=== PATIENT | male | born 1940 | race Caucasian/White ===

== ENCOUNTER 2022-04-01 16:50 | Observation (INO) | payer OTHER, MEDICARE ==
[2022-04-01] MEDS ORDERED: ONDANSETRON 4 MG/2 ML VIAL IVPB ONE ×2 (16:56→17:20)
[2022-04-01] MEDS ORDERED: ONDANSETRON 4 MG/2 ML VIAL ONE ×2 (17:09→17:21)
[2022-04-01] MEDS: SODIUM CHLORIDE 1,000 ML IV SCH (17:15)
[2022-04-01 17:21] LABS: INR 1.07 (0.83-1.09); PROTHROMBIN TIME (PATIENT) 12.3 SEC (9.7-13.0)
[2022-04-01 17:23] LABS: HEMATOCRIT 37.8 % (35.4-49); HEMOGLOBIN 13.4 G/dL (11.7-16.9); MCH 33.6 pg (25.7-33.7); MCHC 35.3 g/dl (32.0-35.9); MEAN CELL VOLUME 95.1 fl (80-96); MEAN PLT VOLUME 7.4 fl (7.5-11.1); PLATELET COUNT 259.8 10^3/uL (134-434); RBC 3.97 10^6/uL (4.00-5.60); RDW 13.9 % (11.9-15.9); WHITE BLOOD COUNT 8.4 10^3/uL (4.0-10.8)
[2022-04-01 17:24] LABS: ACTIVATED PTT 26.6 SECONDS (25.2-36.5)
[2022-04-01] MEDS ORDERED: ACETAMINOPHEN 1000 MG/100 ML BAG IVPB ONE (17:43)
[2022-04-01 17:46] LABS: BILIRUBIN,TOTAL 0.8 mg/dl (0.2-1); CALCIUM 9.4 mg/dl (8.5-10); CREATININE 0.8 mg/dl (0.55-1.3); TOT PROT 7.4 g/dl (6.4-8.2)
[2022-04-01] MEDS ORDERED: ACETAMINOPHEN INJECTION 100 ML IVPB ONE (17:46)
[2022-04-01 17:48] LABS: PLATELET ESTIMATE ADEQUATE
[2022-04-01 19:30] LABS: VENOUS BASE EXCESS 2.2 mmol/L (-2-2); VENOUS O2 SATURATION 86.9 % (70-80); VENOUS PCO2 40.8 mmHg (38-52); VENOUS PH 7.432 (7.310-7.410)
[2022-04-01 19:49] LABS: LACTIC ACID 2.2 mmol/L (0.4-2.0)
[2022-04-01] MEDS ORDERED: SODIUM CHLORIDE 500 ML IV STA (20:03)
[2022-04-01 21:41] LABS: EPITHELIAL CELLS RARE /hpf
[2022-04-01 22:19] VITALS: BMI 23.6
[2022-04-02 09:02] LABS: ALBUMIN 3.2 g/dl (3.4-5.0); BILIRUBIN,TOTAL 0.9 mg/dl (0.2-1); CALCIUM 8.5 mg/dl (8.5-10); CREATININE 0.7 mg/dl (0.55-1.3); TOT PROT 5.9 g/dl (6.4-8.2)
[2022-04-02 09:08] LABS: HEMATOCRIT 33.2 % (35.4-49); HEMOGLOBIN 11.5 G/dL (11.7-16.9); MCH 33.2 pg (25.7-33.7); MCHC 34.5 g/dl (32.0-35.9); MEAN PLT VOLUME 7.9 fl (7.5-11.1); PLATELET COUNT 232.3 10^3/uL (134-434); RBC 3.46 10^6/uL (4.00-5.60); RDW 13.8 % (11.9-15.9); WHITE BLOOD COUNT 8.5 10^3/uL (4.0-10.8)
[2022-04-02] MEDS: LOSARTAN POTASSIUM 50 MG TABLET PO SCH (11:10)
[2022-04-02] MEDS: HYDROCHLOROTHIAZIDE 12.5 MG CAPSULE (FP) PO SCH (11:10)
[2022-04-02 12:02] LABS: PLATELET ESTIMATE ADEQUATE
[2022-04-02] MEDS: PRIMIDONE 50 MG TABLET PO SCH (12:28)
[2022-04-02] MEDS: ENOXAPARIN NA (PORCINE) 40 MG/0.4 ML DISP.SYRIN SQ SCH (12:29)
[2022-04-03 08:15] LABS: ALBUMIN 3.1 g/dl (3.4-5.0); BILIRUBIN,TOTAL 0.7 mg/dl (0.2-1); CALCIUM 8.6 mg/dl (8.5-10); CREATININE 0.7 mg/dl (0.55-1.3); MAGNESIUM 1.9 mg/dL (1.8-2.4); TOT PROT 5.8 g/dl (6.4-8.2)
[2022-04-03] MEDS ORDERED: POTASSIUM CHLORIDE TABS 20 MEQ TABLET.ER (FP) PO ONE (09:00)
[2022-04-03 09:03] LABS: HEMOGLOBIN 11.4 G/dL (11.7-16.9); MCHC 34.6 g/dl (32.0-35.9); MEAN CELL VOLUME 95.4 fl (80-96); MEAN PLT VOLUME 7.7 fl (7.5-11.1); PLATELET COUNT 220.8 10^3/uL (134-434); RBC 3.46 10^6/uL (4.00-5.60); RDW 13.8 % (11.9-15.9); WHITE BLOOD COUNT 6.3 10^3/uL (4.0-10.8)
[2022-04-03] MEDS: SODIUM CHLORIDE 1,000 ML IV SCH (09:13)
[2022-04-03] MEDS: PRIMIDONE 50 MG TABLET PO SCH (09:15)
[2022-04-03] MEDS: LOSARTAN POTASSIUM 50 MG TABLET PO SCH (09:15)
[2022-04-03] MEDS: HYDROCHLOROTHIAZIDE 12.5 MG CAPSULE (FP) PO SCH (09:15)
[2022-04-03] MEDS: ENOXAPARIN NA (PORCINE) 40 MG/0.4 ML DISP.SYRIN SQ SCH (09:25)
[2022-04-03 12:54] LABS: PLATELET ESTIMATE ADEQUATE
[2022-04-03 13:27] VITALS: BP 115/58; PULSE 65; TEMP 98.8
== END 2022-04-03 15:55 | disposition home or self-care (01) ==
LOC: FER 16:50 → FM/S 19:41 → INTOOBSV 19:41
PROVIDERS: ADMIT Internal Medicine; ATTEND Nurse Practitioner Acute Care
PROC: 3E033NZ Introduction of Analgesics, Hypnotics, Sedatives into Peripheral Vein, Percutaneous Approach (ICD-10-PCS; principal; 2022-04-01)
PROC: 3E023GC Introduction of Other Therapeutic Substance into Muscle, Percutaneous Approach (ICD-10-PCS; 2022-04-01)
PROC: 3E033GC Introduction of Other Therapeutic Substance into Peripheral Vein, Percutaneous Approach (ICD-10-PCS; 2022-04-01)
PROC: 3E0337Z Introduction of Electrolytic and Water Balance Substance into Peripheral Vein, Percutaneous Approach (ICD-10-PCS; 2022-04-01)
DX: G61.81 Chronic inflammatory demyelinating polyneuritis (principal); R41.82 Altered mental status, unspecified; I10 Essential (primary) hypertension; W18.39XA Other fall on same level, initial encounter; Y93.H2 Activity, gardening and landscaping; Y92.007 Garden or yard of unspecified non-institutional (private) residence as the place of occurrence of the external cause
CPT/HCPCS: 0241U-QW; 36415; 70450-TC; 70496-TC; 70498-TC; 71045-TC-FY; 80053; 80061; 81003; 81015; 82550; 82803; 82962; 83036; 83605; 83690; 83735; 84443; 84484; 85025; 85027; 85610; 85730; 86850; 86900; 86901; 93005; 93306-TC; 96361; 96372; 96374; 96375; 96376; 97116-GP; 97162-GP; 99285-25; G0378; Q9967